=== PATIENT | male | born 1990 | race Caucasian/White ===

== ENCOUNTER 2021-04-22 08:45 | Emergency (ER) | payer OTHER ==
[~2021-04-22] VITALS: Ht 170.2 cm; Wt 68.0 kg
[~2021-04-22 08:45] MED LIST: NAPR500 PO
[2021-04-22] MEDS ORDERED: HYDR1TAB94 PO (09:53)
[2021-04-22] MEDS ORDERED: IBU800 MG PO (09:53)
== END 2021-04-22 10:15 | disposition home or self-care (01) ==
LOC: ER 08:45
DX: S42.021A Displaced fracture of shaft of right clavicle, initial encounter for closed fracture (principal); F17.200 Nicotine dependence, unspecified, uncomplicated; V00.131A Fall from skateboard, initial encounter
CPT/HCPCS: 29105; 73000; 90471; 90714; 96374-59; 99283-25; A9270; J1170

== ENCOUNTER 2021-05-01 11:18 | Day surgery (SDC) | payer OTHER ==
[~2021-05-01] VITALS: Ht 170.2 cm; Wt 66.9 kg
[~2021-05-01 11:18] MED LIST changes: +HYDR1TAB94 PO; +IBU800 MG PO
== END 2021-05-01 16:02 | disposition home or self-care (01) ==
LOC: ORSCSDS 11:18
PROVIDERS: Orthopaedic Surgery
PROC: 0PS904Z Reposition Right Clavicle with Internal Fixation Device, Open Approach (ICD-10-PCS; principal; 2021-05-01 12:30)
DX: S42.021A Displaced fracture of shaft of right clavicle, initial encounter for closed fracture (principal); F17.210 Nicotine dependence, cigarettes, uncomplicated
CPT/HCPCS: 73000; C1713; J0690; J1100; J1885; J2250; J2370; J2405; J2704; J2795; J3010; J7120